=== PATIENT | male | born 1935 | race Caucasian/White ===

== ENCOUNTER 2022-02-03 08:41 | Observation (INO) | payer MEDICARE ==
[2022-02-03] VITALS (21 sets, daily range): BP systolic 90–171; BP diastolic 51–90
[~2022-02-03] VITALS: Ht 172.7 cm; Wt 64.4 kg
[~2022-02-03 08:41] MED LIST: NO HOME MEDS; ceFAZolin inj. 2,000 MG in dextrose 5%-water 100 ML IV ONE; famotidine 20mg tablet PO ONE
--- NOTE | 2022-02-03 09:00 | NUR ---
PT PREPPED FOR SURGERY, PTS NEIGHBOR LAYLA AT BEDSIDE WITH PT, PT IS EXTREMELY HARD OF HEARING, AND INDEPENDENT. PT HERE FOR PACEMAKER INSERTION. PT HAS HISTORY OF SYNCOPY, AND SHORTNESS OF BREATH WITH MULTIPLE FALLS. ELECTRICAL ENGINEERING INTERN SHOWING SINUS TACHYCARDIA AND LONG ATRIAL PAUSES. PT INSTRUCTED TO USE THE CALL HUERTA FOR ASSISTANCE, FRIEND REMAINS AT BEDSIDE. IV STARTED PREOP MED GIVEN
[2022-02-03 10:27] LABS: PRE OP PROTIME 10.4 SECONDS (9.0-12.0)
[2022-02-03 10:30] LABS: BASOPHILS % (AUTO) 0.3 % (0-1); EOSINOPHILS % (AUTO) 0.1 % (0-6); LYMPHOCYTES # (AUTO) 0.8 X10'3 (1.1-4.8); LYMPHOCYTES % (AUTO) 24.3 % (21-51); MEAN CORPUSCULAR HEMOGLOBIN 32.8 PG (27.0-31.0); MEAN CORPUSCULAR HGB CONC 34.2 g/dL (33.0-36.5); MEAN PLATELET VOLUME 9.2 FL (7.4-10.4); MONOCYTES # (AUTO) 0.7 X10'3 (0-0.9); MONOCYTES % (AUTO) 20.7 % (2-12); NEUTROPHILS # (AUTO) 1.7 X10'3 (1.8-7.7); NEUTROPHILS % (AUTO) 54.6 % (42-75); PRE OP HEMATOCRIT 31.4 % (42.0-52.0); PRE OP PLATELET COUNT 132 X10'3 (140-440); RED BLOOD COUNT 3.28 X10'6 (4.70-6.10); RED CELL DISTRIBUTION WIDTH 14.7 % (11.5-14.5)
[2022-02-03 10:34] LABS: ALBUMIN 4.3 G/DL (3.4-5.0); ALBUMIN/GLOBULIN RATIO 1.2 (1.1-1.5); ALKALINE PHOSPHATASE 77 IU/L (46-116); BLOOD UREA NITROGEN 25 MG/DL (7-18); BUN/CREATININE RATIO 19.2 (5.4-32.0); CALCIUM 9.1 MG/DL (8.5-10.1); CHLORIDE 103 MMOL/L (99-107); PRE OP ALT 18 U/L (30-65); PRE OP ANION GAP 10 (8-16); PRE OP AST 20 U/L (10-37); PRE OP BILIRUB, TOTAL 0.8 MG/DL (0.0-1.0); PRE OP GLUCOSE 106 MG/DL (70-104); PRE OP POTASSIUM 4.3 MMOL/L (3.4-5.1); PRE OP SODIUM 137 MMOL/L (135-145); TOTAL CARBON DIOXIDE 24.2 MMOL/L (24-32); TOTAL PROTEIN 7.8 G/DL (6.4-8.2); eGFR 52 ML/MIN
[2022-02-03 10:35] LABS: PRE OP HEMOGLOBIN 10.8 g/dL (14.0-17.9)
[2022-02-03] MEDS ORDERED: labetalol 20mg/4ml (5mg/ml) syringe IV PRN (10:35)
[2022-02-03] MEDS ORDERED: morphine 4 MG/ML inj SYRINge IV PRN (10:35)
[2022-02-03] MEDS ORDERED: hydrALAZINE 20mg/ml inj. IV PRN (10:35)
[2022-02-03] MEDS ORDERED: meperidine/PF 25mg/ml syringe IV PRN ×2 (10:35)
[2022-02-03] MEDS ORDERED: ringers solution, lacted 1,000 ML IV SCH (10:35)
[2022-02-03] MEDS ORDERED: morphine 2 MG/ML inj. syringe IV PRN (10:35)
[2022-02-03] MEDS ORDERED: ondansetron/PF 4mg/2ml inj IV PRN ×2 (10:35→13:35)
[2022-02-03] MEDS ORDERED: LIDOcaine 1% 30ml preserv. free vial ONE ×2 (11:13→12:49)
[2022-02-03] MEDS ORDERED: fentaNYL/PF 50MCG/1 ML 2ML syringe ONE (12:31)
[2022-02-03] MEDS ORDERED: midazolam 1 mg/ML 2ml injection ONE (12:31)
[2022-02-03] MEDS ORDERED: LIDOcaine 2% (20mg/ml) 5ml vial ONE (12:35)
[2022-02-03] MEDS ORDERED: propofol inj 20 ML IV ONE (12:35)
--- NOTE | 2022-02-03 13:32 | NUR ---
Received from OR via , accompanied by Anesthesiologist ANUM and OR NURSE report given by Anesthesiolgist. PT IS A/O X4; IS FORGETFUL BUT AWARE. NEED TO REPEAT THAT PROCEDURE HAS BEEN DONE AND WAS SUCCESSFUL. LR RUNNING AT 70ML/HR. A FIB OTHERWISE VSS. DENIES ANY PAIN OR DISCOMFORT. Addendum: 02/03/22 at 1350 by Vanessa Mac RN Amended: Links added.
[2022-02-03] MEDS ORDERED: HYDROcodone/acetaminophen 10/325mg tab PO PRN (13:35)
[2022-02-03] MEDS ORDERED: naloxone 0.4 mg/ml inj IV PRN (13:35)
[2022-02-03] MEDS: ringers solution, lacted 1,000 ML IV SCH ×2 (15:18→19:10)
--- NOTE | 2022-02-03 15:52 | NUR ---
Report called to receiving nurse. Transferred via BED AND TELEMETRY BOX AND ONE Belongings BAG SENT TO FLOOR. PT IS DENYING PAIN OR DISCOMFORT. ABLE TO TOLERATE LIQUIDS. URINATED 600 ML'S OF URINE VIA URINAL.. Special Issues communicated to receiving nurse. Addendum: 02/03/22 at 1634 by Vanessa Mac RN Amended: Links added.
--- NOTE | 2022-02-03 18:20 | NUR ---
Patient in room [facility]. I have received report from FREDA Rosado and had the opportunity to ask questions and assume patient care.
--- NOTE | 2022-02-03 18:33 | NUR ---
Problems reprioritized. Patient report given, questions answered & plan of care reviewed with
[2022-02-03] MEDS: ceFAZolin inj. 1,000 MG in dextrose 5%-water 50ml 50 ML IV SCH (21:37)
[2022-02-03] MEDS: potassium CL 20mEq in D5-1/2NS 1,000 ML IV SCH (21:37)
[2022-02-04] MEDS: ceFAZolin inj. 1,000 MG in dextrose 5%-water 50ml 50 ML IV SCH (04:45)
[2022-02-04] MEDS: potassium CL 20mEq in D5-1/2NS 1,000 ML IV SCH (04:47)
--- NOTE | 2022-02-04 05:09 | NUR ---
pt awoke confused. neighbor Wilma came to stay with pt. screaming out. attempt to go to bathroom. assisted to bathroom. has refused to wear sling all night. some blood on the surgical site under the dressing. he has been using his arm moving around in the bed. pt never took meds and then had anesthesia, causing major confusion. pt calmed for the time. very unpredictable behavior.
[2022-02-04 06:00] VITALS: BP 159/76
--- NOTE | 2022-02-04 06:30 | NUR ---
Problems reprioritized. Patient report given, questions answered & plan of care reviewed with FREDA Rosado.
--- NOTE | 2022-02-04 06:36 | NUR ---
Patient in room [facility]. I have received report from Astrid and had the opportunity to ask questions and assume patient care.
[2022-02-04 10:00] VITALS: BP 129/60
== END 2022-02-04 12:31 | disposition home or self-care (01) ==
LOC: PAS 08:41 → PAS IN 13:40 → SUR 3N 16:07
PROVIDERS: ADMIT Surgery; ATTEND Surgery
DX: I49.5 Sick sinus syndrome (principal); R79.1 Abnormal coagulation profile; E78.5 Hyperlipidemia, unspecified; M85.80 Other specified disorders of bone density and structure, unspecified site; R35.1 Nocturia; J44.9 Chronic obstructive pulmonary disease, unspecified; E78.00 Pure hypercholesterolemia, unspecified; Z87.891 Personal history of nicotine dependence; Z79.899 Other long term (current) drug therapy
CPT/HCPCS: 33208; 36415; 71045; 71048; 80053; 82948; 85025; 85610; 85730; 86885; 86900; 86901; 93005; 96365; 96366; 96375; C1785; G0378; J0690; J2250; J2704; J3010; J3480; J3490; J7030; J7060; J7120; A4215; A4565; A4618; A6258; A7000